=== PATIENT | female | born 1975 | race African-American/Black ===

== ENCOUNTER 2019-03-12 12:53 | Day surgery (SDC) | payer OTHER ==
[~2019-03-12] VITALS: Ht 162.6 cm; Wt 71.0 kg
[~2019-03-12 12:53] MED LIST: ATOR40TA68 PO; OMEP20CA16 PO
[2019-03-12 15:39] VITALS: Ht 162.6 cm; Wt 71.0 kg
[2019-03-12] MEDS ORDERED: LIDOCAINE 4% SOLUTION 50 ML BTL ONE (16:08)
[2019-03-12 16:09] VITALS: BP 130/77; PULSE 73; RESP 18
[2019-03-12] MEDS ORDERED: FENTAnyl 50 MCG/ML VIAL ONE (17:00)
[2019-03-12] MEDS ORDERED: MIDAZOLAM 1 MG/ML 2 ML INJ ONE ×2 (17:00)
[2019-03-12 17:07] VITALS: BP 98/67; PULSE 71; RESP 18
== END 2019-03-12 17:44 | disposition home or self-care (01) ==
LOC: GIL 12:53
PROVIDERS: ATTEND Internal Medicine
DX: K29.50 Unspecified chronic gastritis without bleeding (principal); K20.8 Other esophagitis
CPT/HCPCS: 43239; 88305; 88312; J2250; J3010; Z7610